=== PATIENT | male | born 1965 | race Caucasian/White ===

== ENCOUNTER 2017-05-19 14:13 | Emergency (ER) | payer MEDICAID, OTHER ==
[~2017-05-19] VITALS: Ht 185.4 cm; Wt 93.0 kg
[~2017-05-19 14:13] MED LIST: DIVA500T2 PO; GLIP10TA11 PO; INSU100I5 SQ; METF500T4 PO; OLAN10TA3 PO; PIOG45TA PO; QUET200T PO; QUET400T PO; SERT100T PO; UNK INSULIN
--- NOTE | 2017-05-19 14:15 | NUR ---
PT AMBULATORY TO ER BED 12 C/O DIFFUSE ABDOMINAL PAIN X 2-3 DAYS. DENIES N/V/D AT THIS TIME. DENIES FEVER. GOWNED AND PLACED ON MONITOR. 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 AWAITING MD MARRERO.
--- NOTE | 2017-05-19 15:11 | NUR ---
DR COLLAZO AT BEDSIDE FOR EVAL.
[2017-05-19] MEDS ORDERED: PANTOPRAZOLE 40 MG VIAL ONE (15:17)
--- NOTE | 2017-05-19 15:20 | NUR ---
IV LINE STARTED BLOOD DRAWN AND SENT TO LAB.
[2017-05-19 15:26] LABS: APPEARANCE,URINE Clear (CLEAR); BILIRUBIN,URINE SMALL (NEGATIVE); BLOOD, URINE Negative Ery/uL (NEGATIVE); COLOR,URINE Yellow (YELLOW); KETONES,URINE Trace (NEGATIVE); LEUKOCYTE ESTERASE ,URINE Negative (NEGATIVE); NITRITE, URINE Negative (NEGATIVE); PROTEIN,URINE 30 mg/dl (NEGATIVE); UGLUCOSE Negative (NEGATIVE); UROBILINOGEN,URINE 0.2 EU/dL (0.2)
[2017-05-19 15:26] LABS: BASOPHILS % (AUTO) 0.4 % (0.0-2.0); EOSINOPHILS % (AUTO) 0.3 % (0.0-6.0); HEMATOCRIT 50 % (39-51); HEMOGLOBIN 17.2 g/dL (13.5-17.5); LYMPHOCYTES # (AUTO) 1.9 /CMM (0.8-4.8); LYMPHOCYTES % (AUTO) 15.9 % (20.0-44.0); MEAN CORPUSCULAR HEMOGLOBIN 30 PG (26.0-33.0); MEAN CORPUSCULAR HGB CONC 35 g/dl (31.0-36.0); MEAN CORPUSCULAR VOLUME 86 fL (80-96); MONOCYTES # (AUTO) 0.6 /CMM (0.1-1.30); MONOCYTES % (AUTO) 4.7 % (2.0-12.0); NEUTROPHILS # (AUTO) 9.4 /CMM (1.8-8.9); NEUTROPHILS % (AUTO) 78.7 % (43.0-81.0); PLATELET COUNT (AUTO) 343 /CMM (150-450); RED BLOOD CELL COUNT(AUTO) 5.78 MIL/uL (4.5-6.0); WHITE BLOOD COUNT (AUTO) 11.9 K/uL (4.3-11.0)
[2017-05-19] MEDS ORDERED: PANTOPRAZOLE 40 MG VIAL IV ONE (15:30)
[2017-05-19] MEDS ORDERED: IV NS 0.9% 1,000 ML BAG IV ONE (15:30)
[2017-05-19 15:39] LABS: PROTHROMBIN TIME 10.4 SECS (9.5-12.7)
[2017-05-19 15:41] LABS: ALANINE AMINOTRANSFERASE 33 U/L (12-78); ALBUMIN 4.3 g/dL (3.4-5.0); ALKALINE PHOSPHATASE 99 U/L (46-116); ASPARTATE AMINOTRANSFERASE 28 U/L (15-37); BILIRUBIN,DIRECT 0.2 mg/dL (0.0-0.2); BILIRUBIN,TOTAL 0.8 mg/dL (0.2-1.0); CALCIUM, SERUM 9.9 mg/dL (8.5-10.1); CARBON DIOXIDE 30 mmol/L (21-32); CHLORIDE 99 mmol/L (98-107); CREATININE 0.8 mg/dL (0.6-1.3); GLUCOSE 151 mg/dL (74-106); LIPASE 68 U/L (73-393); POTASSIUM 4.5 mmol/L (3.5-5.1); SODIUM SERUM 136 mmol/L (136-145); TOTAL PROTEIN, SERUM 8.6 g/dL (6.4-8.2); UREA NITROGEN, BLOOD 11 mg/dL (7-18)
[2017-05-19 15:48] LABS: TROPONIN I < 0.017 ng/mL (0.00-0.056)
[2017-05-19 15:51] LABS: BACTERIA,URINE Rare /HPF (None Seen); RBC,URINE NONE SEEN /HPF (0-2); SQUAMOUS EPITHELIAL CELL,UR Few /HPF (None Seen); WBC,URINE NONE SEEN /HPF (0-3)
[2017-05-19] MEDS ORDERED: SUCRALFATE 1 G TABLET PO ONE (16:00)
[2017-05-19] MEDS ORDERED: SUCRALFATE 1 G TABLET ONE (16:01)
--- NOTE | 2017-05-19 17:15 | NUR ---
Patient discharged to home in stable condition. Written and verbal after care instructions given. Patient verbalizes understanding of instruction.IV removed. Catheter intact and site benign. Pressure and 4x4 applied to site. No bleeding noted.
[2017-05-19 17:17] VITALS: BP 152/84
== END 2017-05-19 17:19 | disposition home or self-care (01) ==
LOC: ER 14:17
DX: R10.12 Left upper quadrant pain (principal); I10 Essential (primary) hypertension; E11.9 Type 2 diabetes mellitus without complications; F20.9 Schizophrenia, unspecified; F32.9 Major depressive disorder, single episode, unspecified; F17.200 Nicotine dependence, unspecified, uncomplicated; Z79.4 Long term (current) use of insulin
CPT/HCPCS: 36415; 80048; 80076; 81001; 83690; 84484; 85025; 85730; 93005; 96374; 99285; A4606 ×2; C9113; J7030; 81000-TC; Z7610

== ENCOUNTER 2017-10-29 14:56 | Emergency (ER) | payer MEDICAID, OTHER ==
[~2017-10-29] VITALS: Ht 185.4 cm; Wt 81.6 kg
[~2017-10-29 14:56] MED LIST changes: +METF-440 PO; -METF500T4 PO; -PIOG45TA PO; +PIOG45TA5 PO
--- NOTE | 2017-10-29 15:00 | NUR ---
PAIN TO RT GREAT TOE AND SOLE OF FOOT X 1 WEEK, NAD NOTED, VSS, RESP EVEN AND UNLABORED, PT WAS PUT ON MONITOR, WAITING FOR MD MARRERO.
[2017-10-29] MEDS ORDERED: ONDANSETRON HCL/PF 4 MG/2 ML VIAL IVP ONE (15:30)
[2017-10-29] MEDS ORDERED: IV NS 0.9% 1,000 ML BAG IV ONE (15:30)
[2017-10-29] MEDS ORDERED: ONDANSETRON HCL/PF 4 MG/2 ML VIAL ONE (15:30)
[2017-10-29] MEDS ORDERED: MORPHINE SULFATE INJ 2 MG/ML DISP.SYRIN IV ONE (15:30)
[2017-10-29] MEDS ORDERED: MORPHINE SULFATE INJ 4 MG/ML DISP.SYRIN ONE (15:31)
[2017-10-29 15:41] LABS: BASOPHILS # (AUTO) 0.1 /CMM (0.0-0.2); BASOPHILS % (AUTO) 0.6 % (0.0-2.0); EOSINOPHILS % (AUTO) 1.2 % (0.0-6.0); HEMATOCRIT 36 % (39-51); HEMOGLOBIN 12.4 g/dL (13.5-17.5); LYMPHOCYTES # (AUTO) 2.7 /CMM (0.8-4.8); LYMPHOCYTES % (AUTO) 28.6 % (20.0-44.0); MEAN CORPUSCULAR HGB CONC 35 g/dl (31.0-36.0); MEAN CORPUSCULAR VOLUME 88 fL (80-96); MONOCYTES # (AUTO) 0.7 /CMM (0.1-1.30); MONOCYTES % (AUTO) 7.5 % (2.0-12.0); NEUTROPHILS # (AUTO) 5.8 /CMM (1.8-8.9); NEUTROPHILS % (AUTO) 62.1 % (43.0-81.0); PLATELET COUNT (AUTO) 288 /CMM (150-450); RDW COEFFICIENT OF VARIATION 14.2 (11.5-15.0); RED BLOOD CELL COUNT(AUTO) 4.03 MIL/uL (4.5-6.0); WHITE BLOOD COUNT (AUTO) 9.4 K/uL (4.3-11.0)
[2017-10-29 15:50] LABS: CALCIUM, SERUM 8.7 mg/dL (8.5-10.1); CREATININE 0.7 mg/dL (0.6-1.3); POTASSIUM 3.4 mmol/L (3.5-5.1)
[2017-10-29 15:56] LABS: ALBUMIN 3.8 g/dL (3.4-5.0); BILIRUBIN,DIRECT 0.1 mg/dL (0.0-0.2); BILIRUBIN,TOTAL 0.5 mg/dL (0.2-1.0); TOTAL PROTEIN, SERUM 7.4 g/dL (6.4-8.2)
[2017-10-29 17:49] VITALS: BP 137/58
--- NOTE | 2017-10-29 17:50 | NUR ---
Patient discharged to home in stable condition. Written and verbal after care instructions given. Patient verbalizes understanding of instruction.IV removed. Catheter intact and site benign. Pressure and 4x4 applied to site. No bleeding noted. Prescription given.
== END 2017-10-29 17:51 | disposition home or self-care (01) ==
LOC: ER 14:57
DX: E11.621 Type 2 diabetes mellitus with foot ulcer (principal); E11.40 Type 2 diabetes mellitus with diabetic neuropathy, unspecified; L97.519 Non-pressure chronic ulcer of other part of right foot with unspecified severity; I10 Essential (primary) hypertension; F20.9 Schizophrenia, unspecified; F32.9 Major depressive disorder, single episode, unspecified; F17.200 Nicotine dependence, unspecified, uncomplicated; Z79.4 Long term (current) use of insulin; Z79.84 Long term (current) use of oral hypoglycemic drugs
CPT/HCPCS: 36415; 73630-TC; 80048-TC; 80076-TC; 85025-TC; A4606; J2270; J2405; J7030; Z7610

== ENCOUNTER 2017-11-06 13:52 | Emergency (ER) | payer OTHER ==
[~2017-11-06] VITALS: Ht 185.4 cm; Wt 81.6 kg
[2017-11-06 13:52] VITALS: BP 117/90
== END 2017-11-06 15:36 | disposition home or self-care (01) ==
LOC: ER 13:53
DX: R05 Cough (principal); R06.02 Shortness of breath; M79.674 Pain in right toe(s); I10 Essential (primary) hypertension; E11.9 Type 2 diabetes mellitus without complications; F20.9 Schizophrenia, unspecified; F32.9 Major depressive disorder, single episode, unspecified; F17.200 Nicotine dependence, unspecified, uncomplicated; Z79.4 Long term (current) use of insulin
CPT/HCPCS: 99281; A4606; Z7610; Z7502

== ENCOUNTER 2017-11-17 11:21 | Emergency (ER) | payer OTHER ==
[~2017-11-17] VITALS: Ht 185.4 cm; Wt 81.6 kg
[2017-11-17 11:34] VITALS: BP 121/73
== END 2017-11-17 13:28 | disposition home or self-care (01) ==
LOC: ER 11:25
DX: E11.621 Type 2 diabetes mellitus with foot ulcer (principal); L97.519 Non-pressure chronic ulcer of other part of right foot with unspecified severity; I10 Essential (primary) hypertension; F31.9 Bipolar disorder, unspecified; F20.9 Schizophrenia, unspecified; F17.200 Nicotine dependence, unspecified, uncomplicated
CPT/HCPCS: 73660-TC; A4606; Z7610

== ENCOUNTER 2018-05-24 18:38 | Emergency (ER) | payer OTHER ==
[~2018-05-24] VITALS: Ht 185.4 cm; Wt 77.1 kg
[2018-05-24 19:28] VITALS: BP 170/86
== END 2018-05-24 21:03 | disposition home or self-care (01) ==
LOC: ER 18:43
DX: E11.621 Type 2 diabetes mellitus with foot ulcer (principal); E11.40 Type 2 diabetes mellitus with diabetic neuropathy, unspecified; Z76.5 Malingerer [conscious simulation]; I10 Essential (primary) hypertension; F17.200 Nicotine dependence, unspecified, uncomplicated; Z60.2 Problems related to living alone; Z79.84 Long term (current) use of oral hypoglycemic drugs; Z79.899 Other long term (current) drug therapy; Z79.4 Long term (current) use of insulin
CPT/HCPCS: 73630-TC; A4606; Z7610

== ENCOUNTER 2020-06-14 16:35 | Inpatient (IN) | payer OTHER ==
[~2020-06-14] VITALS: Ht 185.4 cm; Wt 101.2 kg
--- NOTE | 2020-06-14 17:00 | NUR ---
Patient came in to the er c/o sob since april, getting worst the last 2 weeks, 98% on room air. Breathing evenly and unlabored. kept comfortable, will continue to monitor accordingly.
[2020-06-14] MEDS ORDERED: FUROSEMIDE 40 MG/4 ML VIAL ONE (17:21)
[2020-06-14] MEDS ORDERED: FUROSEMIDE 40 MG/4 ML VIAL IV ONE (17:30)
--- NOTE | 2020-06-14 17:30 | NUR ---
BG [address].JESSICA AWARE. PT HAS NO SIGNS OF TREMORS, BODY WEAKNESS OR CONFUSION. PER ELIAS GIVE ORANGE JUICE AND FOOD.
[2020-06-14 17:40] LABS: BASOPHILS # (AUTO) 0.2 /CMM (0.0-0.2); BASOPHILS % (AUTO) 2.7 % (0.0-2.0); EOSINOPHILS % (AUTO) 0.6 % (0.0-6.0); HEMATOCRIT 34 % (39-51); HEMOGLOBIN 10.5 g/dL (13.5-17.5); LYMPHOCYTES # (AUTO) 1.9 /CMM (0.8-4.8); LYMPHOCYTES % (AUTO) 24.8 % (20.0-44.0); MEAN CORPUSCULAR HGB CONC 31 g/dl (31.0-36.0); MEAN CORPUSCULAR VOLUME 74 fL (80-96); MONOCYTES # (AUTO) 0.5 /CMM (0.1-1.30); MONOCYTES % (AUTO) 7.2 % (2.0-12.0); NEUTROPHILS # (AUTO) 4.9 /CMM (1.8-8.9); NEUTROPHILS % (AUTO) 64.7 % (43.0-81.0); PLATELET COUNT (AUTO) 217 /CMM (150-450); WHITE BLOOD COUNT (AUTO) 7.5 K/uL (4.3-11.0)
--- NOTE | 2020-06-14 17:43 | NUR ---
SERVICE CONTROL OPERATOR AT BEDSIDE FOR XRAY.
[2020-06-14 17:51] LABS: CALCIUM, SERUM 8.9 mg/dL (8.5-10.1); CREATININE 1.1 mg/dL (0.6-1.3); POTASSIUM 4.8 mmol/L (3.5-5.1)
[2020-06-14] MEDS ORDERED: ASPI-1169 PO (17:57)
[2020-06-14] MEDS ORDERED: PRAV40TA3 PO (17:57)
[2020-06-14] MEDS ORDERED: LURA40TA PO ×2 (17:57)
[2020-06-14] MEDS ORDERED: IBUP-1957 PO (17:57)
[2020-06-14] MEDS ORDERED: BENA20TA9 PO (17:57)
[2020-06-14] MEDS ORDERED: TRAZ150T75 PO (17:58)
[2020-06-14 18:03] LABS: ALBUMIN 3.3 g/dL (3.4-5.0); BILIRUBIN,DIRECT 0.4 mg/dL (0.0-0.2); BILIRUBIN,TOTAL 0.8 mg/dL (0.2-1.0); TOTAL PROTEIN, SERUM 7.8 g/dL (6.4-8.2)
--- NOTE | 2020-06-14 18:15 | NUR ---
URINE SPECIMEN COLLECTED AND SENT TO LAB.
[2020-06-14 18:43] LABS: BILIRUBIN,URINE Negative (NEGATIVE); COLOR,URINE YELLOW (YELLOW); LEUKOCYTE ESTERASE ,URINE Negative (NEGATIVE); NITRITE, URINE Negative (NEGATIVE); PROTEIN,URINE Negative (NEGATIVE); UGLUCOSE Negative (NEGATIVE); UROBILINOGEN,URINE 0.2 EU/dL (0.2)
--- NOTE | 2020-06-14 19:00 | NUR ---
CALLED ECHO FOR JACK: CRISTY [phone]
--- NOTE | 2020-06-14 19:05 | NUR ---
PT IS WHEELED TO CT SCAN VIA [facility].
[2020-06-14] MEDS ORDERED: IOHEXOL-350 100 ML VIAL IV ONE (19:08)
[2020-06-14] MEDS ORDERED: IV NS 0.9% 250 ML IV ONE (19:08)
[2020-06-14] MEDS ORDERED: CT SWABBABLE VALVE TRANS SET 1 EA INFUS.SET MC ONE (19:08)
--- NOTE | 2020-06-14 19:17 | NUR ---
REPORT GIVEN TO KD RUSSELL FOR VALERIO.
[2020-06-14] MEDS ORDERED: ASPIRIN 81 MG TAB.CHEW ONE ×2 (19:50→20:00)
[2020-06-14] MEDS: ASPIRIN 81 MG TAB.CHEW PO SCH (19:54)
--- NOTE | 2020-06-14 19:58 | NUR ---
Shamika longo in [facility] - 06/14/20 at 1958 by DAVIN PAMELA;JYOTI;LOLLYDKFJ;HOLDEN;ERIC
--- NOTE | 2020-06-14 19:58 | NUR ---
URINE COLLECTED AND SENT TO LAB
[2020-06-14] MEDS ORDERED: HYDROCODONE/APAP 5/325MG TABLET PO PRN (20:30)
[2020-06-14] MEDS ORDERED: MAG HYDROX/AL HYDROX/SIMETH 30 ML UDC PO PRN (20:30)
[2020-06-14] MEDS ORDERED: MORPHINE SULFATE INJ 2 MG/ML DISP.SYRIN IV PRN (20:30)
[2020-06-14] MEDS ORDERED: ACETAMINOPHEN 325 MG TABLET PO PRN (20:30)
[2020-06-14] MEDS ORDERED: ONDANSETRON HCL/PF 4 MG/2 ML VIAL IVP PRN (20:30)
[2020-06-14] MEDS ORDERED: ZOLPIDEM TARTRATE 5 MG TABLET PO PRN (20:30)
[2020-06-14] MEDS ORDERED: MAGNESIUM HYDROXIDE 30 ML UDC PO PRN (20:30)
[2020-06-14] MEDS ORDERED: ENOXAPARIN SODIUM 40 MG/0.4 ML DISP.SYRIN SQ ONE (20:56)
[2020-06-14] MEDS ORDERED: ENOXAPARIN SODIUM 40 MG/0.4 ML DISP.SYRIN SQ SCH (21:00)
[2020-06-14] MEDS: BLOOD SUGAR DIAGNOSTIC 1 EACH STRIP IN SCH (21:07)
--- NOTE | 2020-06-14 21:19 | NUR ---
sandwich provided to the patient, blood sugar 62, Dr. Osiel Hendrickson notified.
[2020-06-15 06:10] LABS: BASOPHILS # (AUTO) 0.1 /CMM (0.0-0.2); BASOPHILS % (AUTO) 1.1 % (0.0-2.0); EOSINOPHILS % (AUTO) 1.4 % (0.0-6.0); HEMATOCRIT 32 % (39-51); LYMPHOCYTES # (AUTO) 1.8 /CMM (0.8-4.8); LYMPHOCYTES % (AUTO) 28.8 % (20.0-44.0); MEAN CORPUSCULAR HGB CONC 31 g/dl (31.0-36.0); MEAN CORPUSCULAR VOLUME 73 fL (80-96); MONOCYTES # (AUTO) 0.6 /CMM (0.1-1.30); MONOCYTES % (AUTO) 9.1 % (2.0-12.0); NEUTROPHILS # (AUTO) 3.8 /CMM (1.8-8.9); NEUTROPHILS % (AUTO) 59.6 % (43.0-81.0); PLATELET COUNT (AUTO) 234 /CMM (150-450); RED BLOOD CELL COUNT(AUTO) 4.47 MIL/uL (4.5-6.0); WHITE BLOOD COUNT (AUTO) 6.4 K/uL (4.3-11.0)
[2020-06-15 06:25] LABS: CALCIUM, SERUM 9.1 mg/dL (8.5-10.1); CREATININE 1.2 mg/dL (0.6-1.3); MAGNESIUM 1.5 mg/dL (1.8-2.4); PHOSPHORUS 4.5 mg/dL (2.5-4.9)
--- NOTE | 2020-06-15 07:31 | NUR ---
REPORT GIVEN TO TEREZA YI FOR VALERIO.
[2020-06-15] MEDS: BLOOD SUGAR DIAGNOSTIC 1 EACH STRIP IN SCH ×4 (07:48→22:19)
[2020-06-15] MEDS: ASPIRIN 81 MG TAB.CHEW PO SCH ×2 (09:00→09:37)
[2020-06-15] MEDS ORDERED: FUROSEMIDE 40 MG/4 ML VIAL ONE (09:23)
[2020-06-15] MEDS ORDERED: ASPIRIN 81 MG TAB.CHEW ONE (09:23)
[2020-06-15] MEDS: FUROSEMIDE 40 MG/4 ML VIAL IV SCH (09:37)
[2020-06-15] MEDS ORDERED: MAGNESIUM OXIDE 400 MG TABLET PO SCH ×2 (10:19→11:09)
--- NOTE | 2020-06-15 10:40 | NUR ---
PATIENT SIGNED CONSENT FOR US GUIDED THORACENTESIS
--- NOTE | 2020-06-15 11:21 | NUR ---
DAVE BOSTON AT BEDSIDE FOR THORACENTESIS
--- NOTE | 2020-06-15 11:42 | NUR ---
S/P THORACENTESIS. NO COMPLICATIONS OCCURED DURING PROCEDURE. 1600CC OF FLUID REMOVED.
--- NOTE | 2020-06-15 11:58 | NUR ---
LETICIA JAIME AT BEDSIDE
--- NOTE | 2020-06-15 12:00 | NUR ---
FOLLOWED UP RADIOLOGY FOR CXR S/P THORACENTESIS
--- NOTE | 2020-06-15 12:08 | NUR ---
AUTOMOTIVE PRODUCT SPECIALIST AT BEDSIDE
--- NOTE | 2020-06-15 14:52 | NUR ---
PATIENT ASLEEP IN BED, EASILY AROUSABLE BY VOICE. HOOKED TO MONITOR. VSS. WILL CONTINUE TO MONITOR ACCORDINGLY
--- NOTE | 2020-06-15 15:32 | NUR ---
[facility] CALLED PT MRSA POSITIVE (+) RN JERMAINE NOTIFIED.
[2020-06-15] MEDS ORDERED: GUAIFENESIN/D-METHORPHAN HB 5 ML UDC PO PRN (17:30)
[2020-06-15] MEDS ORDERED: GUAIFENESIN/D-METHORPHAN HB 5 ML UDC ONE (17:32)
--- NOTE | 2020-06-15 17:42 | NUR ---
PATIENT SERVED WITH DINNER. TOLERATED PO WELL.
--- NOTE | 2020-06-15 19:28 | NUR ---
ENDORSEMENT GIVEN TO DREW YI FOR VALERIO
--- NOTE | 2020-06-16 00:20 | NUR ---
PATIENT AMBULATED TO THE RESTROOM WITH A STEADY GAIT.
[2020-06-16 05:36] LABS: BASOPHILS # (AUTO) 0.1 /CMM (0.0-0.2); BASOPHILS % (AUTO) 0.9 % (0.0-2.0); EOSINOPHILS % (AUTO) 0.6 % (0.0-6.0); HEMATOCRIT 33 % (39-51); HEMOGLOBIN 10.1 g/dL (13.5-17.5); LYMPHOCYTES # (AUTO) 2.4 /CMM (0.8-4.8); LYMPHOCYTES % (AUTO) 35.8 % (20.0-44.0); MEAN CORPUSCULAR HGB CONC 31 g/dl (31.0-36.0); MEAN CORPUSCULAR VOLUME 72 fL (80-96); MONOCYTES # (AUTO) 0.6 /CMM (0.1-1.30); NEUTROPHILS # (AUTO) 3.6 /CMM (1.8-8.9); NEUTROPHILS % (AUTO) 53.7 % (43.0-81.0); PLATELET COUNT (AUTO) 205 /CMM (150-450); RED BLOOD CELL COUNT(AUTO) 4.58 MIL/uL (4.5-6.0); WHITE BLOOD COUNT (AUTO) 6.8 K/uL (4.3-11.0)
[2020-06-16 07:25] LABS: CALCIUM, SERUM 8.9 mg/dL (8.5-10.1); CREATININE 1.1 mg/dL (0.6-1.3); MAGNESIUM 1.4 mg/dL (1.8-2.4); PHOSPHORUS 3.9 mg/dL (2.5-4.9); POTASSIUM 4.6 mmol/L (3.5-5.1)
--- NOTE | 2020-06-16 07:39 | NUR ---
REPORT GIVEN TO PATRICIA YI FOR VALERIO.
[2020-06-16] MEDS: BLOOD SUGAR DIAGNOSTIC 1 EACH STRIP IN SCH ×2 (08:00→12:22)
[2020-06-16] MEDS ORDERED: FUROSEMIDE 40 MG/4 ML VIAL ONE (08:02)
[2020-06-16] MEDS ORDERED: ASPIRIN 81 MG TAB.CHEW ONE (08:03)
[2020-06-16] MEDS: FUROSEMIDE 40 MG/4 ML VIAL IV SCH (08:06)
[2020-06-16] MEDS: ASPIRIN 81 MG TAB.CHEW PO SCH (08:06)
--- NOTE | 2020-06-16 09:42 | NUR ---
PATIENT A/OX4, BREATHING EVEN AND UNLABORED, NO SOB NOTED. ON ROOM AIR WITH SPO2 OF 100%. DR. BURNS AT BEDSIDE FOR EVAL.
[2020-06-16] MEDS ORDERED: Magnesium 1GM/D5W 100ML PREMIX 100 ML IV SCH (11:00)
[2020-06-16] MEDS ORDERED: Magnesium 1GM/D5W 100ML PREMIX 100 ML IV ONE (11:12)
[2020-06-16] MEDS ORDERED: MAGNESIUM OXIDE 400 MG TABLET PO ONE (12:00)
[2020-06-16] MEDS ORDERED: FURO-144 PO (13:07)
[2020-06-16] MEDS ORDERED: MUPI22OI7 MC (13:07)
--- NOTE | 2020-06-16 13:57 | NUR ---
PATIENT A/OX4, AMBULATORY WITH STEADY GAIT. BREATHING EVEN AND UNLABORED, NO SOB NOTED. IV removed. Catheter intact and site benign. Pressure and 4x4 applied to site. No bleeding noted.Patient discharged to home in stable condition. Written and verbal after care instructions given. Patient verbalizes understanding of instruction.
[2020-06-16 13:58] VITALS: BP 150/79
--- NOTE | 2020-06-16 13:59 | NUR ---
GAVE DR. PRETTY'S CONTACT INFORMATION FOR FUTURE APPOINTMENT.
== END 2020-06-16 14:00 | disposition home or self-care (01) | DRG 194 ==
LOC: ER 16:39 → TRANSITION 18:52
PROVIDERS: ADMIT Nurse Practitioner Acute Care; ATTEND Registered Nurse
PROC: 0W993ZZ Drainage of Right Pleural Cavity, Percutaneous Approach (ICD-10-PCS; principal; 2020-06-15)
DX: I11.0 Hypertensive heart disease with heart failure (principal); I42.9 Cardiomyopathy, unspecified; J90 Pleural effusion, not elsewhere classified; Z79.4 Long term (current) use of insulin; J44.9 Chronic obstructive pulmonary disease, unspecified; E11.40 Type 2 diabetes mellitus with diabetic neuropathy, unspecified; E11.65 Type 2 diabetes mellitus with hyperglycemia; E11.649 Type 2 diabetes mellitus with hypoglycemia without coma; Z79.82 Long term (current) use of aspirin; Z79.899 Other long term (current) drug therapy; E78.5 Hyperlipidemia, unspecified; E88.09 Other disorders of plasma-protein metabolism, not elsewhere classified; F31.9 Bipolar disorder, unspecified; Z87.81 Personal history of (healed) traumatic fracture; D50.9 Iron deficiency anemia, unspecified; F17.210 Nicotine dependence, cigarettes, uncomplicated; F16.21 Hallucinogen dependence, in remission; E66.9 Obesity, unspecified; Z68.29 Body mass index [BMI] 29.0-29.9, adult; Z22.322 Carrier or suspected carrier of Methicillin resistant Staphylococcus aureus; I21.A1 Myocardial infarction type 2; F20.9 Schizophrenia, unspecified; J98.11 Atelectasis; R18.8 Other ascites; I50.23 Acute on chronic systolic (congestive) heart failure
CPT/HCPCS: 36415; 71045-TC; 80048-TC; 80061-TC; 80076-TC; 82962-TC; 83605-TC; 83735-TC; 83880; 84100-TC; 84155-TC; 84484-TC; 85025-TC; 85378-TC; 85610-TC; 87040-TC; 87070-TC; 87075-TC; 87081-TC; 87102-TC; 89051-TC; 93307-TC; 93970-TC; G0378; G0480; J1650; J1940; J3475; J7050; Q9967; U0003